=== PATIENT | male | born 1980 | race Caucasian/White ===

== ENCOUNTER 2017-12-27 08:14 | Emergency (ER) | payer OTHER, SELFPAY ==
[2017-12-27 09:05] LABS: Absolute Lymphocytes (CBC) 2.8 K/uL (0.7-4.9); Absolute Monocytes 0.6 K/uL (0.1-1.3); Absolute Neutrophil 7.1 K/uL (1.8-8.0); Basophils % 0.4 % (0-1.3); Eosinophils % 0.9 % (0-4.4); Hematocrit 45.5 % (39.6-49.0); Lymphocytes % 26.6 % (15.3-44.8); MCH 31.4 pg (27.0-35.0); MCV 89.3 fL (80-100); MPV 7.4 fL (7.6-11.3); Monocytes % 5.6 % (3.3-12.3); RBC Red Blood Cell Count 5.09 M/uL (4.33-5.43)
--- NOTE | 2017-12-27 09:09 | RAD REPORT ---
EXAM DESCRIPTION: CT - Head Brain Wo Cont - 12/27/2017 8:59 am CLINICAL HISTORY: Extremity numbness and weakness COMPARISON: None. TECHNIQUE: Axial 5 mm thick images of the head were obtained without IV contrast. All CT scans are performed using dose optimization technique as appropriate and may include automated exposure control or mA/KV adjustment according to patient size. FINDINGS: No intracranial hemorrhage, mass, edema or shift of mid-line structures. No acute infarcti on changes seen. No abnormal extra-axial fluid collections. Ventricles are normal. Mastoid air cells and visualized portions of the paranasal sinuses are clear. No acute bony findings. IMPRESSION: Negative non-contrast CT head examination.
[2017-12-27 09:43] LABS: BUN Blood Urea Nitrogen 11 mg/dL (7-18); Bicarbonate 26 mmol/L (21-32); Glucose Level 98 mg/dL (74-106); Magnesium 2.2 mg/dL (1.8-2.4); Potassium 4.3 mmol/L (3.5-5.1); Sodium Level 139 mmol/L (136-145); Troponin (Emerg Dept Use Only) < 0.02 ng/mL (0.0-0.045)
[2017-12-27 09:49] LABS: NT PRO-BNP < 5 pg/mL (<125)
--- NOTE | 2017-12-27 09:58 | RAD REPORT ---
EXAM DESCRIPTION: RAD - Chest Single View - 12/27/2017 9:09 am CLINICAL HISTORY: Shortness of breath, chest pain COMPARISON: None. TECHNIQUE: AP portable chest image was obtained 0854 hours . FINDINGS: Lungs are clear. Heart and vasculature are normal. No measurable pleural effusion and no p neumothorax. No acute bony abnormality seen. No acute aortic findings suspected. IMPRESSION: No acute cardiopulmonary process.
--- NOTE | 2017-12-27 10:25 | EKG ---
Test Date: 2017-12-27 Test Time: 08:31:13 Heavy Equipment Operator: ONDINA MEASUREMENT RESULTS: Intervals: Rate: 73 RI: 134 QRSD: 78 QT: 356 QTc: 392 [place]: P: 28 RI: 134 QRS: 55 T: 17 INTERPRETIVE STATEMENTS: Normal sinus rhythm Normal ECG No previous ECG available for comparison Electronically Signed On 12-27-17 10:24:59 ANIMAL TRAINER by Neeraj Stark
[2017-12-27] MEDS ORDERED: ASPIRIN 81 MG CHEWABLE TABLET ONE (10:49)
--- NOTE | 2017-12-27 11:30 | EDPHYS ---
Physician Documentation [facility] Name: Dakota Hogue Age: 37 yrs Sex: Male : 1980 Arrival Date: 12/27/2017 Time: 08:15 Bed 18 Private MD: ED Physician Peng Berumen HPI: 12/27 09:52 This 37 yrs old Male presents to ER via Wheelchair with complaints of Chest kb Pain, Numbness, Headache. 09:52 The patient or guardian reports chest pain that is located primarily in the chest kb diffusely. The pain does not radiate. Associated signs and symptoms: Pertinent positives: headache. The chest pain is described as aching. Duration: The patient or guardian reports multiple episodes, that are intermittent, with no pattern. Modifying factors: The symptoms are alleviated by nothing. the symptoms are aggravated by nothing. Severity of pain: At its worst the pain was moderate in the emergency department the pain is unchanged. The patient has not experienced similar symptoms in the past. The patient has been recently seen by a physician: a direct sales professional, in the office, out of Town, 4 month(s) ago, with similar presenting complaints. Pt reports chest pain that has been intermittent for "months and months" as well as left sided numbness and tingling that has been going on for the same amount of time. Reports heaviness of left arm got worse yesterday. Episodes normally don't last as long as this one so he came to get checked out. Reports all symptoms have been continuous since yesterday. Smokes 1.5 ppd. Saw a direct sales professional for same symptoms 4 months ago and was told he needed further testing, but "I never made it back up there to have them done." . Historical: - Allergies: 08:28 No Known Allergies; tw2 - Home Meds: 08:28 losartan oral oral [Active]; tw2 - PMHx: 08:28 Hypertension; tw2 - Immunization history:: Adult Immunizations. - Social history:: Smoking status: Patient uses tobacco products, 1.5 pks/day. - Ebola Screening: : Patient denies travel to an Ebola-affected area in the 21 days before illness onset. ROS: 09:51 Constitutional: Negative for fever, chills, and weight loss, Eyes: Negative for injury, kb pain, redness, and discharge, ENT: Negative for injury, pain, and discharge, Neck: Negative for injury, pain, and swelling, Respiratory: Negative for shortness of breath, cough, wheezing, and pleuritic chest pain, Abdomen/GI: Negative for abdominal pain, nausea, vomiting, diarrhea, and constipation, Back: Negative for injury and pain, : Negative for injury, bleeding, discharge, and swelling, MS/Extremity: Negative for injury and deformity, Skin: Negative for injury, rash, and discoloration. 09:51 Cardiovascular: Positive for chest pain, Negative for edema, orthopnea, palpitations, paroxysmal nocturnal dyspnea. 09:51 Neuro: Positive for numbness, tingling, of the left arm and left leg. Exam: 09:51 Constitutional: This is a well developed, well nourished patient who is awake, alert, kb and in no acute distress. Head/Face: Normocephalic, atraumatic. Eyes: Pupils equal round and reactive to light, extra-ocular motions intact. Lids and lashes normal. Conjunctiva and sclera are non-icteric and not injected. Cornea within normal limits. Periorbital areas with no swelling, redness, or edema. ENT: Nares patent. No nasal discharge, no septal abnormalities noted. Tympanic membranes are normal and external auditory canals are clear. Oropharynx with no redness, swelling, or masses, exudates, or evidence of obstruction, uvula midline. Mucous membranes moist. Neck: Trachea midline, no thyromegaly or masses palpated, and no cervical lymphadenopathy. Supple, full range of motion without nuchal rigidity, or vertebral point tenderness. No Meningismus. Chest/axilla: Normal chest wall appearance and motion. Nontender with no deformity. No lesions are appreciated. Cardiovascular: Regular rate and rhythm with a normal S1 and S2. No gallops, murmurs, or rubs. Normal PMI, no JVD. No pulse deficits. Respiratory: Lungs have equal breath sounds bilaterally, clear to auscultation and percussion. No rales, rhonchi or wheezes noted. No increased work of breathing, no retractions or nasal flaring. Abdomen/GI: Soft, non-tender, with normal bowel sounds. No distension or tympany. No guarding or rebound. No evidence of tenderness throughout. Skin: Warm, dry with normal turgor. Normal color with no rashes, no lesions, and no evidence of cellulitis. MS/ Extremity: Pulses equal, no cyanosis. Neurovascular intact. Full, normal range of motion. Neuro: Awake and alert, GCS 15, oriented to person, place, time, and situation. Cranial nerves II-XII grossly intact. Motor strength 5/5 in all extremities. Sensory grossly intact. Cerebellar exam normal. Normal gait. Vital Signs: 08:24 BP 120 / 85; Pulse 74; Resp 18; Temp 97.9(O); Pulse Ox 97% on R/A; Pain 4/10; tw2 09:25 BP 122 / 73; Pulse 73; Resp 17; Pulse Ox 97% on R/A; tw2 10:44 BP 101 / 66; Pulse 68; Resp 15; Pulse Ox 97% on R/A; tw2 11:28 BP 106 / 74; Pulse 61; Resp 17; Pulse Ox 99% on R/A; tw2 NIH Stroke Scale Scores: 09:51 NIHSS Score: 0 kb MDM: 08:26 Patient medically screened. kb 09:51 Data reviewed: vital signs, nurses notes. Data interpreted: Pulse oximetry: on room air kb is 97 %. Interpretation: normal. 11:29 Counseling: I had a detailed discussion with the patient and/or guardian regarding: the kb historical points, exam findings, and any diagnostic results supporting the discharge/admit diagnosis, lab results, radiology results, the need for outpatient follow up, a direct sales professional, a neurologist, to return to the emergency department if symptoms worsen or persist or if there are any questions or concerns that arise at home. 12/27 08:45 Order name: Basic Metabolic Panel; Complete Time: 09:50 kb 12/27 08:45 Order name: CBC with Diff; Complete Time: 09:10 kb 12/27 08:45 Order name: Magnesium; Complete Time: 09:50 kb 12/27 08:45 Order name: NT PRO-BNP; Complete Time: 09:50 kb 12/27 08:45 Order name: PT-INR; Complete Time: 09:23 kb 12/27 08:45 Order name: Troponin (emerg Dept Use Only); Complete Time: 09:50 kb 12/27 08:45 Order name: XRAY Chest (1 view); Complete Time: 09:59 kb 12/27 08:45 Order name: EKG; Complete Time: 08:47 kb 12/27 08:45 Order name: Cardiac monitoring; Complete Time: 08:53 kb 12/27 08:45 Order name: EKG - Nurse/Tech; Complete Time: 08:53 kb 12/27 08:45 Order name: CT Head Brain wo Cont; Complete Time: 09:10 kb 12/27 10:37 Order name: Troponin (emerg Dept Use Only); Complete Time: 11:27 kb 12/27 10:37 Order name: EKG; Complete Time: 10:37 kb 12/27 08:45 Order name: IV Saline Lock; Complete Time: 08:53 kb 12/27 08:45 Order name: Labs collected and sent; Complete Time: 08:53 kb 12/27 08:45 Order name: O2 Per Protocol; Complete Time: 08:53 kb 12/27 08:45 Order name: O2 Sat Monitoring; Complete Time: 08:53 kb 12/27 10:37 Order name: EKG - Nurse/Tech; Complete Time: 10:48 kb Administered Medications: 10:44 Drug: Aspirin Chewable Tablet 324 mg Route: PO; tw2 11:12 Follow up: Response: No adverse reaction tw2 Disposition: 18:51 Co-signature as Attending Physician, Peng Berumen MD available for consultation at ps1 all times. . Disposition: 12/27/17 11:29 Discharged to Home. Impression: Chest pain, unspecified. - Condition is Stable. - Discharge Instructions: Nonspecific Chest Pain, [id number]. - Medication Reconciliation Form, Thank You Letter, Antibiotic Education, Prescription Opioid Use, Work release form, Family Work Release form. - Follow up: Emergency Department; When: As needed; Reason: Worsening of condition. Follow up: Private Physician; When: 2 - 3 days; Reason: Recheck today's complaints, Continuance of care, Re-evaluation by your physician. NIH Stroke Scale - NIH Stroke Score Date: 12/27/2017 Time: 09:51 Total Score = 0 1a. Level of Consciousness (LOC) - 0(Alert) 1b. Level of Consciousness (LOC) (Year \\T\\ Age) - 0(Both) 1c. LOC Commands (Open \\T\\ Closes Eyes/Leaf Coverer) - 0(Both) 2. Best Gaze (Lateral Gaze Paresis) - 0(Normal) 3. Visual Field Loss - 0(No visual loss) 4. Facial Palsy - 0(Normal) 5a. Left Arm: Motor (10-second hold) - 0(No drift) 5b. Right Arm: Motor (10-second hold) - 0(No drift) 6a. Left Leg: Motor (5-second hold - always test supine) - 0(No drift) 6b. Right Leg: Motor (5-second hold - always test supine) - 0(No drift) 7. Limb Ataxia (finger/nose \\T\\ heel/liu - test with eyes open) - 0(Absent) 8. Sensory Loss (pinprick arms/legs/face) - 0(Normal) 9. Best Language: Aphasia (description/naming/reading) - 0(No aphasia) 10. Dysarthria (speech clarity - read or repeat words) - 0(Normal) 11. Extinction and Inattention (visual/tactile/auditory/spatial/personal) - 0(No abnormality) Initials: kb Signatures: Dispatcher [employer] EDMS Melvi Mcleod, CONTRACT WRITER-C CONTRACT WRITER-Ckb Raya Willard RN RN tw2 Peng Berumen MD MD ps1 Corrections: (The following items were deleted from the chart) 11:37 11:29 12/27/2017 11:29 Discharged to Home. Impression: Chest pain, unspecified. tw2 Condition is Stable. Forms are Work release form, Family Work Release, Medication Reconciliation Form, Thank You Letter, Antibiotic Education, Prescription Opioid Use. Follow up: Emergency Department; When: As needed; Reason: Worsening of condition. Follow up: Private Physician; When: 2 - 3 days; Reason: Recheck today's complaints, Continuance of care, Re-evaluation by your physician. kb
--- NOTE | 2017-12-27 11:30 | ER ---
Nurse's Notes [facility] Name: Dakota Hogue Age: 37 yrs Sex: Male : 1980 Arrival Date: 12/27/2017 Time: 08:15 Bed 18 Private MD: Diagnosis: Chest pain, unspecified Presentation: 12/27 08:23 Presenting complaint: Patient states: i have had chest pain for a while now, went to [facility] the dr 4 mths ago and he saw something he didn't like but i didn't go back, now the chest pain is avery different and its making me fatigued and my limbs were real heavy like yesterday. Transition of care: patient was not received from another setting of care. Onset of symptoms was December 27, 2017. Risk Assessment: Do you want to hurt yourself or someone else? Patient reports no desire to harm self or others. Initial Sepsis Screen: Does the patient meet any 2 criteria? No. Patient's initial sepsis screen is negative. Does the patient have a suspected source of infection? No. Patient's initial sepsis screen is negative. Care prior to arrival: None. 08:23 Method Of Arrival: Wheelchair tw2 08:23 Acuity: AGUILAR 3 tw2 Historical: - Allergies: 08:28 No Known Allergies; tw2 - Home Meds: 08:28 losartan oral oral [Active]; tw2 - PMHx: 08:28 Hypertension; tw2 - Immunization history:: Adult Immunizations. - Social history:: Smoking status: Patient uses tobacco products, 1.5 pks/day. - Ebola Screening: : Patient denies travel to an Ebola-affected area in the 21 days before illness onset. Screenin:44 Abuse screen: Denies threats or abuse. Nutritional screening: No deficits noted. tw2 Tuberculosis screening: No symptoms or risk factors identified. Fall Risk None identified. Assessment: 08:27 Reassessment: ekg notified and at bedside at this time. tw2 08:52 General: Appears in no apparent distress. Behavior is calm, cooperative, appropriate tw2 for age. Pain: Complains of pain in chest Pain radiates to left arm Pain began "months now". Neuro: Level of Consciousness is awake, alert, obeys commands, Oriented to person, place, time, situation. Cardiovascular: Reports chest pain, shortness of breath, Heart tones S1 S2 Patient's skin is warm and dry. Respiratory: Airway is patent Respiratory effort is even, unlabored, Respiratory pattern is regular, symmetrical, Breath sounds are clear bilaterally. GI: No signs and/or symptoms were reported involving the gastrointestinal system. : No signs and/or symptoms were reported regarding the genitourinary system. EENT: No signs and/or symptoms were reported regarding the EENT system. Derm: No signs and/or symptoms reported regarding the dermatologic system. Musculoskeletal: Range of motion: intact in all extremities. 09:26 Reassessment: Patient appears in no apparent distress at this time. No changes from tw2 previously documented assessment. Patient and/or family updated on plan of care and expected duration. Pain level reassessed. Patient is alert, oriented x 3, equal unlabored respirations, skin warm/dry/pink. 10:45 Reassessment: Patient appears in no apparent distress at this time. No changes from tw2 previously documented assessment. Patient and/or family updated on plan of care and expected duration. Pain level reassessed. Patient is alert, oriented x 3, equal unlabored respirations, skin warm/dry/pink. 11:28 Reassessment: Patient appears in no apparent distress at this time. No changes from tw2 previously documented assessment. Patient and/or family updated on plan of care and expected duration. Pain level reassessed. Patient is alert, oriented x 3, equal unlabored respirations, skin warm/dry/pink. Vital Signs: 08:24 BP 120 / 85; Pulse 74; Resp 18; Temp 97.9(O); Pulse Ox 97% on R/A; Pain 4/10; tw2 09:25 BP 122 / 73; Pulse 73; Resp 17; Pulse Ox 97% on R/A; tw2 10:44 BP 101 / 66; Pulse 68; Resp 15; Pulse Ox 97% on R/A; tw2 11:28 BP 106 / 74; Pulse 61; Resp 17; Pulse Ox 99% on R/A; tw2 NIH Stroke Scale Scores: 09:51 NIHSS Score: 0 kb ED Course: 08:15 Patient arrived in ED. as 08:23 Raya Willard, RN is Primary Nurse. tw2 08:24 Triage completed. tw2 08:26 Melvi Mcleod FNP-C is PHCP. kb 08:26 Peng Berumen MD is Attending Physician. kb 08:26 Arm band placed on. tw2 08:27 Placed in gown. Bed in low position. Adult w/ patient. clinical research monitor on. Pulse ox on. tw2 NIBP on. 08:35 EKG done, by electroplating technician. reviewed by Melvi CANDELARIO. at1 08:44 Inserted saline lock: 20 gauge in right antecubital area, using aseptic technique. tw2 Blood collected. Patient maintains SpO2 saturation greater than 95% on room air. 08:58 CT completed. Patient tolerated procedure well. Patient moved to CT via wheelchair. sj Patient moved back from CT. 08:58 CT Head Brain wo Cont In Process Unspecified. EDMS 09:09 XRAY Chest (1 view) In Process Unspecified. EDMS 09:09 X-ray completed. Portable x-ray completed in exam room. Patient tolerated procedure jb2 well. 10:40 Troponin (emerg Dept Use Only) Sent. ss 10:51 EKG done, by electroplating technician. reviewed by Melvi CANDELARIO Repeat EKG. at1 11:36 No provider procedures requiring assistance completed. IV discontinued, intact, tw2 bleeding controlled, No redness/swelling at site. Pressure dressing applied. Administered Medications: 10:44 Drug: Aspirin Chewable Tablet 324 mg Route: PO; tw2 11:12 Follow up: Response: No adverse reaction tw2 Outcome: 11:29 Discharge ordered by . kb 11:36 Discharged to home ambulatory, with significant other. tw2 11:36 Condition: stable 11:36 Discharge instructions given to patient, significant other, Instructed on discharge instructions, follow up and referral plans. Demonstrated understanding of instructions, follow-up care. 11:37 Patient left the ED. tw2 NIH Stroke Scale - NIH Stroke Score Date: 12/27/2017 Time: 09:51 Total Score = 0 1a. Level of Consciousness (LOC) - 0(Alert) 1b. Level of Consciousness (LOC) (Year \\T\\ Age) - 0(Both) 1c. LOC Commands (Open \\T\\ Closes Eyes/Lab Clerk) - 0(Both) 2. Best Gaze (Lateral Gaze Paresis) - 0(Normal) 3. Visual Field Loss - 0(No visual loss) 4. Facial Palsy - 0(Normal) 5a. Left Arm: Motor (10-second hold) - 0(No drift) 5b. Right Arm: Motor (10-second hold) - 0(No drift) 6a. Left Leg: Motor (5-second hold - always test supine) - 0(No drift) 6b. Right Leg: Motor (5-second hold - always test supine) - 0(No drift) 7. Limb Ataxia (finger/nose \\T\\ heel/liu - test with eyes open) - 0(Absent) 8. Sensory Loss (pinprick arms/legs/face) - 0(Normal) 9. Best Language: Aphasia (description/naming/reading) - 0(No aphasia) 10. Dysarthria (speech clarity - read or repeat words) - 0(Normal) 11. Extinction and Inattention (visual/tactile/auditory/spatial/personal) - 0(No abnormality) Initials: kb Signatures: Dispatcher [employer] EDMelvi Jackson, CRAFT SUPERINTENDENT-C CRAFT SUPERINTENDENT-Ckb Joe Moore jb2 Cassi Orta Amelia as Smirch, Shelby, RN RN Liberty Reyna, physical education department chair EKG Tat1 Raya Willard RN RN tw2
--- NOTE | 2017-12-27 14:01 | EKG ---
Test Date: 2017-12-27 Test Time: 10:46:29 Title Insurance Agent: ONDINA MEASUREMENT RESULTS: Intervals: Rate: 61 [place]: 136 QRSD: 80 QT: 374 QTc: 376 [place]: P: 29 NC: 136 QRS: 38 T: 13 INTERPRETIVE STATEMENTS: Normal sinus rhythm Normal ECG Compared to ECG 12/27/2017 08:31:13 No significant changes Electronically Signed On 12-27-17 14:00:53 STRAW HAT WASHER OPERATOR by Neeraj Stark
== END 2017-12-27 11:37 | disposition home or self-care (01) ==
LOC: ER 08:14
DX: R07.9 Chest pain, unspecified (principal); I10 Essential (primary) hypertension; F17.210 Nicotine dependence, cigarettes, uncomplicated; Z79.899 Other long term (current) drug therapy
CPT/HCPCS: 36415; 70450; 71045; 80048; 83735; 83880; 84484; 85025; 85610; 93005; 99285

== ENCOUNTER 2022-07-01 06:15 | Day surgery (SDC) | payer OTHER ==
[2022-07-01] MEDS ORDERED: Ringers Lactate 1,000 ML IV ONE (06:39)
[2022-07-01] MEDS ORDERED: propofoL 200 MG/20 ML VIAL IV ONE (07:19)
[2022-07-01] MEDS ORDERED: LIDOCAINE 1% MPF 5 ML VIAL ONE ×2 (07:36→08:15)
[2022-07-01 08:27] VITALS: TEMP 98.2
[2022-07-01 08:32] VITALS: BP 120/68; O2SAT 98
== END 2022-07-01 08:37 | disposition home or self-care (01) ==
LOC: OR 06:15
PROVIDERS: ATTEND Surgery
PROC: 0DJD8ZZ Inspection of Lower Intestinal Tract, Via Natural or Artificial Opening Endoscopic (ICD-10-PCS; principal; 2022-07-01 06:59)
DX: K57.30 Diverticulosis of large intestine without perforation or abscess without bleeding (principal); K64.4 Residual hemorrhoidal skin tags; K64.8 Other hemorrhoids; R10.32 Left lower quadrant pain
CPT/HCPCS: 45378; J2704; J2001 ×2; J7120